=== PATIENT | female | born 1965 | race African-American/Black ===

== ENCOUNTER → 2016-08-20 | Day surgery (SDC) | payer OTHER ==
[2016-08-20] VITALS (13 sets, daily range): BP systolic 103–158; BP diastolic 67–103
[~2016-08-20] VITALS: Ht 166.4 cm; Wt 94.8 kg
[~2016-08-20] MED LIST: Bupivacaine w/Epi 0.5% 30ml Vial INJ ONE; Clindamycin 600mg 50 ML IV ONE; D5 1/2NS 1,000 ML IV SCH; DiphenhydrAMINE 50mg/ml Inj IVP PRN; EPINEPHrine 1mg/1ml Amp ONE; GUAIFENESIN-CO118 M1 ORAL; Glycopyrrolate 0.2mg/ml 1ml Vial ONE; HYDROmorphone 1mg/ml Carpuject SUBQ PRN; Hydromorphone 0.5mg/0.5ml inj IVP PRN; IBUPROFEN600 MG ORAL; Ketorolac 30mg Inj IV PRN; Ketorolac 30mg Inj ONE; LR 1000ml 1,000 ML IVLG SCH; LR 1000ml ONE; Meperidine 25mg/ml Inj IM PRN; Metoclopramide 10mg/2ml Inj IVP PRN; Midazolam 2mg/2ml Inj IVP PRN; Midazolam 2mg/2ml Inj ONE; Morphine Sulfate 10mg/ml Inj ONE; NKM; NORCO 5-325 TA1 EACH ORAL; NS Irrig 4000ml IRRIG ONE; Neostigmine 1mg/ml 10ml Inj ONE; Norco 5mg/325mg tab ORAL PRN; PERCOCET 5-3251 EACH ORAL; Propofol 10mg/ml 20ml IV ONE; Ropivacaine 5mg/ml Vial 20ml INJ ONE; SOMA350 MG PO; Succinylcholine 20mg/ml 10ml vial ONE; TAMIFLU75 MG ORAL; Tylenol #3 tab (300mg/30mg) ORAL PRN; VALIUM10 MG PO; VICODIN ES 7.51 EACH PO; Zemuron 50mg/5ml Inj IV ONE; celeBREX 200mg Cap **SURGERY PATIENTS ONLY ORAL ONE; fentaNYL 100 mcg/2 mL IV ONE; oxyCONTIN 20mg tab ORAL ONE
--- NOTE | 2016-08-20 07:05 | Pre-Procedure Note/Attestation ---
Pre-Procedure Note/Attestation Complete Prior to Procedure Planned Procedure: right Procedure Narrative: rt shoulder scope, pancapsular release, sad, full jaime Indications for Procedure Pre-Operative Diagnosis: rt frozen shoulder Attestation I attest that I discussed the nature of the procedure; its benefits; risks and complications; and alternatives (and the risks and benefits of such alternatives ), prior to the procedure, with the patient (or the patient's legal front desk representative). I attest that, if there was a reasonable possibility of needing a blood transfusion, the patient (or the patient's legal front desk representative) was given the [facility] standardized written summary, pursuant to the [place] Blood Safety Act ([place] Health and Safety Code # 1645, as amended). I attest that I re-evaluated the patient just prior to the surgery and that there has been no change in the patient's H&P, except as documented below:NONE RICHARD PEMBERTON Aug 20, 2016 07:05
--- NOTE | 2016-08-20 09:21 | Anethesia Preoperative Eval ---
Anesthesia Pre-op PMH/ROS General Date of Evaluation: Aug 20, 2016 Time of Evaluation: 08:10 Anesthesiologist: Kem ASA Score: ASA 2 Mallampati Score Class I : Soft palate, uvula, fauces, pillars visible Class II: Soft palate, uvula, fauces visible Class III: Soft palate, base of uvula visible Class IV: Only hard plate visible Mallampati Classification: Class II Surgeon: Ramakrishna Diagnosis: R shoulder pain Surgical Procedure: R shoulder arthroscopy Anesthesia History: PONV Family History: no anesthesia problems Allergies: Coded Allergies: Shrimp (Verified Allergy, Severe, tongue swells- up; breathing problem, ) IBUPROFEN (Verified Allergy, Intermediate, nausea, 08/20/16) PENICILLINS (Verified Allergy, Intermediate, rash, 08/20/16) Past Medical History Cardiovascular: Reports: HTN - mild, Denies: CAD, ND, arrhythmia, other, valve dz Pulmonary: Denies: COPD, GABI, asthma, other Gastrointestinal/Genitourinary: Reports: GERD Neurologic/Psychiatric: Denies: CVA, TIA, dementia, depression/anxiety, other Endocrine: Denies: DM, hypothyroidism, other, steroids HEENT: Denies: [place] (L), [place] (R), cataract (L), cataract (R), glaucoma, other Hematology/Immune: Denies: DVT, anemia, bleeding disorder, other Musculoskeletal/Integumentary: Reports: DJD, Denies: DDD, OA, RA, edema, other Other: obesity PMH Narrative: as above PSxH Narrative: Hernia repair cholecystectomy L knee arthroscopy Anesthesia Pre-op Phys. Exam Physician Exam Last Vital Signs Date Time Temp Pulse Resp B/P Pulse Ox O2 Delivery O2 Flow Rate FiO2 08/20/16 07:31 98.4 86 18 103/67 100 Room Air Constitutional: NAD Cardiovascular: RRR Respiratory: CTA Gastrointestinal: other - obesity Airway Exam Mallampati Score: Class II MO: full Neck: flexible ROM: full Teeth: missing Dentures: upper, no lower Anesthesia Pre-op A/P Labs see chart Studies Pre-op Studies: EKG - NSr Risk Assessment & Plan Assessment: ASA 2 Plan: GA with ETT R brachial plexus block for p/op pain control. No visible or palpable sites for reliable I/V placement on upper or lower extremities, 2 unsuccessful attempts , 20 G angiocath into L external jugular vein for I/V access. Status Change Before Surgery: No Pre-Antibiotics Drug: Clindamycin 600 mg. Given Within 1 Hr of Incision: Yes Time Given: 08:57 BAILEE KELLY M.D. Aug 20, 2016 09:21
--- NOTE | 2016-08-20 09:38 | Brief Operative Note ---
Immediate Post Operative Note Operative Note Chief Complaint: rt shoulder pain Pre-op Diagnosis: rt frozen shoulder Procedure: rt shoulder lexus, arthroscopy, pancapsular release, sad, full jaime Post-op Diagnosis: same as pre-op Findings: consistent w/pre-op dx studies Surgeon: md brendan Continuous Dryout Operator: kar allen Anesthesiologist: md blaine Anesthesia: general, regional Specimen: none Complications: none Condition: stable Estimated Blood Loss: minimal Drains: none Implant(s) used?: No WAN ALLEN Aug 20, 2016 09:38
--- NOTE | 2016-08-20 10:09 | Immediate Post-Op Evaluation ---
Immediate Post-Op Evalulation Immediate Post-Op Evalulation Procedure: R shoulder arthroscopy Date of Evaluation: Aug 20, 2016 Time of Evaluation: 10:07 IV Fluids: 700 Blood Products: none Estimated Blood Loss: min Urinary Output: none Blood Pressure Systolic: 130 Blood Pressure Diastolic: 87 Pulse Rate: 83 Respiratory Rate: 20 O2 Sat by Pulse Oximetry: 99 Temperature (Fahrenheit): 98.4 Pain Score (1-10): 2 Nausea: No Vomiting: No Complications none Patient Status: awake, patent, extubated, none Hydration Status: adequate BAILEE KELLY M.D. Aug 20, 2016 10:09
--- NOTE | 2016-08-20 10:26 | 48 Hour Post Anesthesia Eval ---
Post Anesthesia Evaluation Procedure: R shoulder arthroscopy Date of Evaluation: Aug 20, 2016 Time of Evaluation: 10:25 Blood Pressure Systolic: 148 0: 95 Pulse Rate: 78 Respiratory Rate: 22 Temperature (Fahrenheit): 97.6 O2 Sat by Pulse Oximetry: 98 Airway: patent Nausea: No Vomiting: No Pain Intensity: 2 Hydration Status: adequate Cardiopulmonary Status: stable Mental Status/LOC: patient returned to baseline Follow-up Care/Observations: n/a Post-Anesthesia Complications: none Follow-up care needed: ready to discharge BAILEE KELLY M.D. Aug 20, 2016 10:26
--- NOTE | 2016-08-20 21:49 | Operative Note - Dictated ---
DATE OF OPERATION: 08/20/2016 SURGERY DATE: 08/20/2016 PREOPERATIVE DX: 1. Right shoulder adhesive capsulitis, posttraumatic. 2. Right shoulder severe impingement. 3. Right shoulder acromioclavicular joint inflammation, chronic. POSTOPERATIVE DX: 1. Right shoulder adhesive capsulitis, posttraumatic with significant stiffness. 2. Right shoulder significant subacromial impingement and rotator cuff inflammation at the site of the impingement. 3. Right shoulder acromioclavicular joint chronic inflammation and arthritis. PROCEDURES: 1. Right shoulder manipulation under anesthesia. 2. Right shoulder arthroscopy and extensive intra-articular shave and debridement. 3. Right shoulder pancapsular release of the rotator interval, anterior inferior glenohumeral ligament, posterior capsule, and posterior inferior glenohumeral ligament. 4. Right shoulder subacromial bursoscopy, bursectomy, and subacromial decompression. 5. Right shoulder full Carmelo procedure (resection of the distal 1 cm of the clavicle). SURGEON: Michele Durbin M.D. PET SITTER: Laura Doan PA-C. ANESTHESIOLOGIST: Ted Brownlee M.D. ANESTHESIA: General LMA anesthesia combined with interscalene block for postoperative pain management. EBL: Minimal. COMPLICATIONS: None. SURGICAL INDICATION: Patient is a 50-year-old female, who sustained the above injury to her shoulder. The patient was treated non-operative initially, but this did not alleviate the patients symptoms. Therefore, after discussing all non-surgical and surgical options, and discussing all foreseeable risk and benefits of surgery, the patient opted for surgical treatment as described above. PATIENT POSITIONING: Patient was brought to the operating room table and was placed on the operating room table. All pressure points were well padded. General anesthesia was induced and patient was then placed in the lateral decubitus position. All pressure points were well padded again and an axillary roll was placed. Patient shoulder was then prepped and draped in the usual sterile fashion. Time out was performed and the appropriate preoperative antibiotic was given by the anesthesiologist. EXAMINATION OF SHOULDER UNDER ANESTHESIA: The shoulder was examined under anesthesia with all muscles well relaxed. The shoulder was forward flexed, abducted and was placed through full range of external and internal rotation. The anterior, posterior, and inferior stability of the shoulder was checked. There was evidence of adhesive capsulitis and decreased range of motion. There was no evidence of instability. At this point, it should be noted that the shoulder was placed through full range of motion, forward abduction, external and internal rotation, and multiple adhesions were released in this fashion. Gentle popping could be heard as adhesions were released. Manipulation under anesthesia was performed in this fashion prior to placing the portals. PORTAL PLACEMENT: The posterior portal was established 2 cm inferior and 1 cm medial to the edge of the posterior acromion. 1 cm skin incision was made using an eleven blade and using the blunt obturator, the cannula was gently placed through the capsule. The midglenoid portal was established just lateral to the coracoid process under direct visualization. Direction of the cannula was first established using a spinal needle, and subsequently, the cannula was placed through the capsule with a blunt obturator. DIAGNOSTIC ARTHROSCOPY: The biceps tendon was probed and pulled through the joint for visualization. It appeared normal. The biceps anchor was palpated with a probe and was visualized. It appeared well attached and there was no evidence of SLAP tear. The posterior labrum and axillary recess was visualized. The posterior labrum and axillary recess was very tight and was hyperemic consistent with adhesive capsulitis. The glenoid articular surface was visualized and it appeared normal. The articular surface of the rotator cuff was visualized and probed next. There was no evidence of articular sided rotator cuff tear extending from the supraspinatus back to the posterior cuff. The Humeral head articular surface was then visualized. There was no evidence of articular cartilage damage. Next the anterior labrum, middle glenohumeral ligament, subscapularis tendon, and the anterior inferior glenohumeral ligament were evaluated. Anterior labrum and middle glenohumeral ligament and anterior glenohumeral ligaments all were hyperemic and very tight consistent of the adhesive capsulitis, rotatory movement was very tight and hyperemic. The subscapularis was intact. At this point, the scope was moved to the midglenoid portal and the posterior structures including the posterior labrum, posterior capsule and posterior cuff were visualized. The posterior capsule was hyperemic and very inflamed. The subscapularis recess was devoid of any loose bodies and the anterior capsule was well attached to the humeral neck. The middle and anterior inferior glenohumeral ligament was visualized. Again, the middle and anterior glenohumeral ligaments were hyperemic and tight consistent with adhesive capsulitis. OPERATIVE DEBRIDEMENTS AND REPAIR: Care was given to all partial thickness tears and frayed structures in the shoulder joint. The frayed rotator cuff and labrum was debrided using a shaver initially through the anterior portal and subsequently through the posterior portal to complete the debridement. This allowed for smooth debridement of all affected structures and all loose fragments were removed. Care at this point was given to the pancapsular release using a combination of shaver and ArthroCare, the rotator interval was opened. The anterior superior glenohumeral ligament was released. Subsequently, the middle glenohumeral ligament and anterior inferior glenohumeral ligament was released superiorly. Inferiorly, this was released using baskets to avoid damage to the axillary nerve. Care was given to be very close to the edge of the glenoid to avoid any injury to the axillary nerve. The axillary nerve was not seen, but was protected through gentle dissection. The release was performed all the way down to the 6 o'clock position. Subsequently, the scope was placed anteriorly and posteriorly to the posterior capsule all the way to the biceps was performed using an ArthroCare. Inferiorly, the release was undertaken using baskets to avoid heat, damage to vascular nerve, and the release was connected with anterior release at the 6 o'clock position. This provided excellent circumferential pancapsular release. DIAGNOSTIC BURSOSCOPY AND SUBACROMIAL DECOMPRESSION: The subacromial bursa was entered from the posterior portal. The anterior portal was established under the CA ligament using a switching stick. Subacromial arthroscopy was initiated. There was extensive bursitis and thickened and inflamed bursa tissue present. The CA ligament appeared to be scuffed and frayed. The shaver was placed through the anterior cannula and debridement of the hypertrophic bursa tissue was accomplished. Once visualization was adequate, a lateral portal was established using a blunt trochar in the mid portion of the acromion bone in the anterior-posterior direction and approximately 2 cm lateral to the lateral edge of the acromion. Using combination of shaver and electrocautery the CA ligament was released from the undersurface of the acromion and a complete bursectomy was accomplished. At this point, a subacromial decompression was performed using a lois initially taking off 5-8 mm of the anterolateral edge of the acromion from the lateral portal and viewing from the posterior portal. Then the lateral border of the undersurface of the acromion was decompressed to the same dept as the anterolateral edge. A posterior trough was then created in the acromion in line with the posterior edge of the clavicle. At this point, the scope was placed in the lateral portal and the subacromial decompression was performed from the posterior portal decompressing the undersurface of the acromion to dept of 5-8 mm. The decompression was performed anterior to the previously marked trough all the way medially to the level of the AC joint. At all times, care was given not to take off too much bone in order to avoid risk of fracture of the acromion. An excellent subacromial decompression was performed in this fashion. At this point, the bursal side of the rotator cuff was examined. All the bursa over the rotator cuff was removed and the rotator cuff was examined with a probe. The arm was placed into external rotation, neutral, and then internal rotation and there was no evidence of rotator cuff although there was hyperemic area over the superior rotator cuff consistent with chronic impingement. The scope was then placed in the posterior portal and the subacromial decompression was rechecked to assure there is no area of bone spur that would be still impinging onto the rotator cuff. EVALUATION OF DISTAL CLAVICLE AND DISTAL CLAVICLE RESECTION: Care was given to the distal end of the clavicle. Using electrocautery and jae, the distal end of the bursa and soft tissue around the distal end of the clavicle was debrided and cleaned. Care was given not to inflict excessive trauma to the ligaments of the AC joint. The distal end of the clavicle appeared to have an inferior osteophyte extending down well bellow the level of the acromion at the level of the AC joint. This appeared to be impinging onto the supraspinatus muscle belly and the musculotendinous junction of the rotator cuff. The entire AC joint appeared to be arthritic as well. A full Carmelo procedure was then performed resecting the distal 1 cm of the clavicle using a lois. The resection was initially performed from the posterior portal and view from the lateral portal, and it subsequently completed viewing from the posterior portal and resecting through the anterior portal with a lois to assure adequate and even resection. Care was given not to damage the superior acromioclavicular ligaments or the coracoacromial ligaments. The extend of the resection was measured by measuring the distance between two spinal needles that were placed perpendicularly through the skin at the edge of the acromion and distal clavicle. CONDITION AT DISCHARGE FROM OPERATING ROOM: The skin was re-approximated and sterile dressing and sling were applied. All lap counts and instrument counts were correct. Patient tolerated the procedure well without complications and was taken to the recovery room in stable conditions. Michele Durbin M.D. DR: JOSEPHINE JOB#: [id number] CC: TIM
== END | disposition home or self-care (01) ==
LOC: SUR 06:42
DX: M75.01 Adhesive capsulitis of right shoulder (principal); M75.41 Impingement syndrome of right shoulder; M19.011 Primary osteoarthritis, right shoulder; M75.51 Bursitis of right shoulder; I10 Essential (primary) hypertension; K21.9 Gastro-esophageal reflux disease without esophagitis; E66.9 Obesity, unspecified; Z68.34 Body mass index [BMI] 34.0-34.9, adult; Z88.6 Allergy status to analgesic agent; Z88.0 Allergy status to penicillin; Z91.013 Allergy to seafood; Z90.49 Acquired absence of other specified parts of digestive tract
CPT/HCPCS: 29823; 29824; 29826; 81025; J0171; J0330; J1170; J1885; J2250; J2270; J2405; J2704; J2710; J2795; J3010; J7120; 94003; 94150; S0077

== ENCOUNTER 2018-08-10 15:51 | Emergency (ER) | payer OTHER ==
[~2018-08-10] VITALS: Ht 166.4 cm; Wt 88.9 kg
[~2018-08-10 15:51] MED LIST changes: -Bupivacaine w/Epi 0.5% 30ml Vial INJ ONE; -Clindamycin 600mg 50 ML IV ONE; -D5 1/2NS 1,000 ML IV SCH; -DiphenhydrAMINE 50mg/ml Inj IVP PRN; -EPINEPHrine 1mg/1ml Amp ONE; -Glycopyrrolate 0.2mg/ml 1ml Vial ONE; -HYDROmorphone 1mg/ml Carpuject SUBQ PRN; -Hydromorphone 0.5mg/0.5ml inj IVP PRN; -Ketorolac 30mg Inj IV PRN; -Ketorolac 30mg Inj ONE; -LR 1000ml 1,000 ML IVLG SCH; -LR 1000ml ONE; -Meperidine 25mg/ml Inj IM PRN; -Metoclopramide 10mg/2ml Inj IVP PRN; -Midazolam 2mg/2ml Inj IVP PRN; -Midazolam 2mg/2ml Inj ONE; -Morphine Sulfate 10mg/ml Inj ONE; -NS Irrig 4000ml IRRIG ONE; -Neostigmine 1mg/ml 10ml Inj ONE; -Norco 5mg/325mg tab ORAL PRN; -Propofol 10mg/ml 20ml IV ONE; -Ropivacaine 5mg/ml Vial 20ml INJ ONE; -Succinylcholine 20mg/ml 10ml vial ONE; -Tylenol #3 tab (300mg/30mg) ORAL PRN; -Zemuron 50mg/5ml Inj IV ONE; -celeBREX 200mg Cap **SURGERY PATIENTS ONLY ORAL ONE; -fentaNYL 100 mcg/2 mL IV ONE; -oxyCONTIN 20mg tab ORAL ONE
[2018-08-10] MEDS ORDERED: VICODIN HP 10-1 EACH ORAL (16:11)
[2018-08-10 16:20] VITALS: BP 123/80
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
[2018-08-10] MEDS ORDERED: Acetaminophen 500mg (ES) tab ORAL ONE (17:15)
[2018-08-10] MEDS ORDERED: Methocarbamol 750mg tab ORAL ONE (17:15)
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
[2018-08-10] MEDS ORDERED: LIDODERM700 M1 TOPIC (17:57)
[2018-08-10] MEDS ORDERED: ROBAXIN-750750 MG PO (17:57)
[2018-08-10] MEDS ORDERED: TYLENOL EXTRA500 MG ORAL (17:57)
[2018-08-10 19:05] VITALS: BP 123/80
--- NOTE | 2018-08-10 19:06 | NUR ---
ER DISCHARGE NOTE: Patient is cleared to be discharged per ERMD, pt is aox4, on room air, with stable vital signs. pt was given dc and prescription instructions, pt was able to verbalize understanding, pt is able to ambulate with steady gait. pt took all belongings.
--- NOTE | 2018-08-11 11:18 | Diagnostic Imaging Report ---
Indication: Back pain Technique: 3 views of the lumbar spine Comparison: 01/26/2015 Findings:Previously demonstrated lower lumbar scoliotic deformity is less striking on the current than on the previous study, may have been in part positional although slight residual curvature is still present. Vertebral body heights are preserved. Disc spaces are preserved. The pedicles are intact. There are cholecystectomy clips. Considerable gas is seen in nondilated small bowel loops, similar to previous Impression: No acute process
--- NOTE | 2018-08-11 11:21 | Diagnostic Imaging Report ---
Indication: Right shoulder pain Technique: 3 views of the right shoulder Comparison: none Findings: No acute fractures. No dislocations. Joint spaces are preserved. Impression: Negative
== END 2018-08-10 18:10 | disposition home or self-care (01) ==
LOC: EMR 16:42
DX: S16.1XXA Strain of muscle, fascia and tendon at neck level, initial encounter (principal); S39.012A Strain of muscle, fascia and tendon of lower back, initial encounter; M25.511 Pain in right shoulder; Z88.0 Allergy status to penicillin; Z88.6 Allergy status to analgesic agent; Z91.013 Allergy to seafood; V43.52XA Car driver injured in collision with other type car in traffic accident, initial encounter; Y92.410 Unspecified street and highway as the place of occurrence of the external cause
CPT/HCPCS: 72020; 99284